=== PATIENT | female | born 1960 | race Caucasian/White ===

== ENCOUNTER → 2020-10-26 | Outpatient (CLI) | payer OTHER | LOC: SLEEP-COR 08-23 10:22 → SLEEP 14:31 | DX: G47.33 Obstructive sleep apnea (adult) (pediatric) (principal); E66.9 Obesity, unspecified; Z68.41 Body mass index [BMI] 40.0-44.9, adult | CPT/HCPCS: 95811 ==

== ENCOUNTER 2021-01-18 12:20 | Emergency (ER) | payer OTHER ==
[2021-01-18 13:18] LABS: HEMOGLOBIN 14.1 gm/dl (12.3-15.3); RED BLOOD COUNT 5.37 M/UL (4.00-5.10); WHITE BLOOD COUNT 9.1 K/UL (4.5-11.0)
== END 2021-01-18 16:14 | disposition home or self-care (01) ==
LOC: ER1 12:20
PROVIDERS: Nurse Practitioner
DX: M25.552 Pain in left hip (principal); I10 Essential (primary) hypertension; F17.210 Nicotine dependence, cigarettes, uncomplicated; W19.XXXA Unspecified fall, initial encounter
CPT/HCPCS: 72192; 73502; 73552; 80053; 85025; 99284

== ENCOUNTER → 2021-04-28 | Outpatient (CLI) | payer OTHER | LOC: HEART 5 03-16 15:30 | DX: I63.9 Cerebral infarction, unspecified (principal) ==